=== PATIENT | male | born 1995 | race Caucasian/White ===

== ENCOUNTER 2019-04-19 12:47 | Emergency (ER) | payer OTHER ==
[~2019-04-19] VITALS: Ht 182.9 cm; Wt 81.8 kg
[2019-04-19 12:49] VITALS: BP 165/90
--- NOTE | 2019-04-19 13:01 | NUR ---
PT IS 23 YO MALE C/O RASH, +ITCHING TO FACE, LOWER ABD, GROIN AREA X1 DAYS, "I JUST WOKE UP WITH IT", RESP EVEN AND UNLABORED, AMB WITH STEADY GAIT TO ROOM
[2019-04-19] MEDS ORDERED: FAMO-128 PO (14:09)
[2019-04-19] MEDS ORDERED: PRED20TA PO (14:09)
[2019-04-19] MEDS ORDERED: DIPH-423 PO (14:09)
== END 2019-04-19 14:27 | disposition home or self-care (01) ==
LOC: ER 12:48
DX: L23.9 Allergic contact dermatitis, unspecified cause (principal); Z79.899 Other long term (current) drug therapy
CPT/HCPCS: 99283

== ENCOUNTER 2019-04-29 16:02 | Emergency (ER) | payer OTHER, MEDICARE ==
[~2019-04-29] VITALS: Ht 182.9 cm; Wt 80.0 kg
[~2019-04-29 16:02] MED LIST: DIPH-423 PO; FAMO-128 PO; PRED20TA PO
[2019-04-29 16:08] VITALS: BP 160/95
[2019-04-29] MEDS ORDERED: diphenhydrAMINE 2%/zinc acetate cream TP STA (17:08)
[2019-04-29] MEDS ORDERED: triamcinolone acetonide 40mg/ml inj IM ONE (17:25)
[2019-04-29] MEDS ORDERED: HYDR28CR14 TOP (17:31)
== END 2019-04-29 18:02 | disposition home or self-care (01) ==
LOC: ER 16:03
DX: L50.9 Urticaria, unspecified (principal); Z79.899 Other long term (current) drug therapy
CPT/HCPCS: 96372; 99283; J3301

== ENCOUNTER 2021-11-02 19:21 | Emergency (ER) | payer OTHER, MEDICARE ==
[~2021-11-02] VITALS: Ht 182.9 cm; Wt 86.4 kg
[~2021-11-02 19:21] MED LIST changes: +HYDR28CR14 TOP; -PRED20TA PO
[2021-11-02 20:00] VITALS: BP 178/97
[2021-11-02] MEDS ORDERED: CEPH-585 PO (21:56)
== END 2021-11-02 22:12 | disposition home or self-care (01) ==
LOC: ER 19:21
DX: L73.9 Follicular disorder, unspecified (principal); R22.2 Localized swelling, mass and lump, trunk; Z79.2 Long term (current) use of antibiotics; Z79.899 Other long term (current) drug therapy
CPT/HCPCS: 99283